=== PATIENT | female | born 1965 | race Caucasian/White ===

== ENCOUNTER 2018-10-16 09:01 | Day surgery (SDC) | payer BC ==
[2018-10-16] MEDS ORDERED: PROPOFOL 40 ML (10:43)
[2018-10-16] MEDS ORDERED: MIDAZOLAM 1 MG/ML 2 ML INJ (10:43)
[2018-10-16] MEDS ORDERED: PROPOFOL 20 ML (11:29)
== END 2018-10-16 12:41 | disposition home or self-care (01) ==
LOC: GIL 09:01
DX: Z12.11 Encounter for screening for malignant neoplasm of colon (principal); K29.00 Acute gastritis without bleeding; K64.4 Residual hemorrhoidal skin tags; I86.8 Varicose veins of other specified sites; K21.9 Gastro-esophageal reflux disease without esophagitis
CPT/HCPCS: 43235; 88305; 88312